=== PATIENT | male | born 1940 | race Asian ===

== ENCOUNTER 2024-02-24 16:04 | Emergency (ER) | payer BC, SELFPAY ==
[2024-02-24] VITALS (8 sets, daily range): BP systolic 140–172; BP diastolic 67–87; BMI 31.5
--- NOTE | 2024-02-24 16:37 | ED.GENMED ---
History of Present Illness
General
Chief Complaint: Headache
Source: patient, spouse and family (daughter at bedside)
Time Seen by Provider: 02/24/24 16:27
Nursing documentation reviewed up to this point in time: agreed with
History of Present Illness
History of Present Illness:
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 worse when he presses the areas. Was there when he woke up at 3 a.m. to go
to [facility]. Went to [facility], urinated and back to bed, felt unsteady. Went back to sleep, awakened at 7:30 a.m. and felt dizzy with the pain again 'just below my eyebrows' That pain remained constant 6/10 all day and remains that currently. He denies any
change in vision, denies photophobia. Has felt nausea off and on, no vomiting. Took Tylenol with no relief. Denies recent URI, sinus problems. Denies recent fall/head trauma
In 2012 in [place] had a 'small clot in his brain that was treated medically with Aspirin' daughter states. She states no hx stroke.
Daughter states pt has been c/o SOB with his daily twice-a day 1.5 mile walks. Pt denies chest pain.
Medications:
Wysolone prednisone 10 mg 0�1 0
Myestin pyridostigmine 60 mg BID
Omeprazole 40 mg
Tamsulosin 0.4 mg
Vitamin D3 500 mcg
Calcium 500 mg
Glimepiride 1 mg BID
Metformin 500 mg twice daily
Claritin
Past History
Past History
ED Past Medical History: NIDDM, Other (Ocular Myasthenia Gravis) and Other (BPH)
ED Past Surgical History: Orthopedic
Social History
Tobacco: Non-smoker
Alcohol: None
Personal:
Living: with family
Review of Systems
Review of Systems
Allergies reviewed?: Yes
All Other Systems: ROS reviewed and negative except as documented in HPI and ROS
Constitutional: Denies fever
Respiratory: Denies trouble breathing
Cardiac: Denies chest pain
ABD/GI: Denies abdominal pain, nausea or vomiting
: Denies dysuria or difficulty voiding
Musculoskeletal: Reports no symptoms; Denies edema
Skin: Reports no symptoms
Neurological: Reports headache (pressure pain behind both upper eyelids ); Denies dizzy, weakness or numbness
Phy Exam
Physical Exam
Physical Exam:
GENERAL: No acute distress. A&Ox3.
CONSTITUTIONAL: Afebrile.
EYES: PERRL, EOMs intact. Conjunctivae normal, eyelids are droopy chronically, left greater than right
Neck: Supple
ENMT: moist mucus membranes, Pharynx nl
RESPIRATORY: Regular respirations, nonlabored, lungs clear.
CARDIOVASCULAR: Regular rate and rhythm, no murmurs, no rubs.
GI: Soft, nontender, normal BS
MUSCULOSKELETAL: Moves with ease. Well perfused.
SKIN: Warm, dry, pink
PSYCH: Normal mood and affect. Well kept, interactive and appropriate
NEUROLOGIC: Awake, alert and oriented. Speech clear. Cranial nerves II through XII intact. [id number] intact. No focal neurological deficits
Course
Orders/Labs/Results
Orders:
Orders
02/24/24 16:13
EKG [Electrocardiogram (*1)] Urgent
Reason for Study: Chest Pain
EKG- Treatment ONCE
02/24/24 16:40
IV Insert/Care/Rem.- Treatment PRN
02/24/24 16:42
CT Head W/o Iv Contrast Urgent
Comment:
Reason For Exam: headache behind eyes
Ondansetron Injectable [Zofran] 4 mg IV NOW STA
02/24/24 16:43
0.9% Sodium Chloride 500 ml [Nss] 500 ml IV BOLUS
Butalb/Acetaminophen/Caffeine [Fioricet] 1 tab PO NOW STA
02/24/24 16:45
CR Chest - 2 Views Urgent
Comment:
Reason For Exam: intermittent SOB
02/24/24 16:53
Complete Blood Count/With Diff Urgent
Comprehensive Metabolic Panel Urgent
NT-proBNP Urgent
Troponin I Urgent
Abnormal Lab Results
02/24/24
16:53
RBC 4.05 L 10^6/uL
(4.70-6.10)
Hgb 11.3 L g/dL
(13.0-18.0)
Hct 33.6 L %
(39.0-52.0)
MPV 11.5 H fL
(7.4-10.4)
Monocytes % 10.3 H %
(1.7-9.3)
Creatinine 0.6 L mg/dL
(0.7-1.3)
Glucose 154 H mg/dl
(70-99)
AST 16 L U/L
(17-59)
Total Protein 5.8 L g/dl
(6.3-8.2)
Albumin 3.3 L g/dl
(3.5-5.0)
02/24/24 16:53
02/24/24 16:53
Vital Signs
Initial and Last Documented VS:
Initial Vital Signs
Temp Pulse Resp BP Pulse Ox
97.3 F 54 16 167/83 100
02/24/24 16:07 02/24/24 16:07 02/24/24 16:07 02/24/24 16:07 02/24/24 16:07
Last Documented Vital Signs
Temp Pulse Resp BP Pulse Ox
97.3 F 66 13 140/67 100
02/24/24 16:07 02/24/24 18:13 02/24/24 18:13 02/24/24 18:13 02/24/24 17:45
MDM/Problems Addressed
Differential Diagnosis Includes:
sinusitis, migraine, brain mass
MDM/Problems Addressed:
84 yo male with h/o Ocular Myasthenia Gravis, NIDDM, BPH, GERD presents with 'pressure pain' 6/10 upper eyelids below his eyebrows. worse when he presses the areas, both eyes there when he woke up at 3 a.m. to go to [facility]. Went to [facility], urinated and back
to bed, felt unsteady. Went back to sleep, awakened at 7:30 a.m. and felt dizzy with the pain behind his eyes. He denies any change in vision, denies photophobia. Has felt nausea off and on, no vomiting. Took Tylenol with no relief. Denies recent
URI, sinus problems. Denies recent fall/head trauma
In 2011 in [place] had a 'small clot in his brain that was treated medically with Aspirin' daughter states. She states no hx stroke.
Daughter states pt has been c/o SOB with his daily twice-a day 1.5 mile walks. Pt denies chest pain.
5:45 p.m.
CBC with no clinically significant abnormality
CMP: No clinically significant abnormality
Troponin within normal limits
BNP within normal limits
Chest x-ray radiology report read: IMPRESSION:
1. Mildly decreased bilateral lung volumes with mild subpleural airspace and interstitial disease in the lower lungs. Diagnostic possibilities are (1) a mild inflammatory interstitial pneumonitis or (2) mild subsegmental atelectasis/scarring.
2. No radiographic evidence for pneumonia, acute pulmonary edema, or pleural effusion.
3. Superior endplate fracture of L1 with near complete vertebral body collapse.
Head CT Radiology report read:
IMPRESSION:
1. Mild diffuse cerebral and cerebellar volume loss.
2. Mild periventricular white matter leukoaraiosis.
3. 1.9 cm sebaceous cyst in the scalp superior to the right frontal bone.
6:00 p.m.
In to re evaluate pt: After Fiorecet he states pain in upper lids is much improved now '07/22.'
No neuro deficits. Pt orthostatics neg
Ambulating up and down hallway with cane (his baseline) with steady gait
Rx for Fioricet sent to his pharmacy.
*Critical Care Note
Total Time (30-74mins, 75-104mins- exclusive of procedures): Not Applicable
ED Attending Note
-
Portions of this chart may have been created with voice recognition software.� Occasional wrong word or��sound alike� substitutions may have occurred due to the inherent limitations of voice recognition software.
Discharge Plan
Departure
Patient Disposition: Home (Routine Discharge)
Date of Disposition: 02/24/24
Time of Disposition: 18:21
Patient with high blood pressure during this ER visit?: No
Condition: Good
Discharge Problem:
Frontal headache
Instructions: Headache, Adult (DC)
Prescriptions:
New
xnmkcfufdx-bnvoluftbyjlb-[id number] [Fioricet] 50-300-40 mg capsule
1 cap PO Q8H PRN (Reason: Pain) Qty: 10 0RF
Referrals:
Cash Hou Jr., DO [Family Provider] - Follow up in 5-7 days
Activity Restrictions/Additional Instructions:
As we discussed, your head CT and chest x-ray showed nothing worrisome.
Your blood work also shows nothing concerning.
Your EKG was normal
For your headache, Tylenol 1000 mg every 8 hours as needed for mild to moderate pain and use the Fioricet an hour after the Tylenol you get no relief from the Tylenol.
See your doctor next week if your headache persists
Interventions
Interventions:
*Risk Screen - Suicide Last Done: 02/24/24 16:07
*General Assessment Last Done: 02/24/24 16:07
*Neglect/Abuse Screening Last Done: 02/24/24 16:07
*Nursing Disposition Last Done: 02/24/24 18:42
ED- Neurological Assessment Last Done: 02/24/24 17:05
Discharge Date and Time
Discharge Date/Time: 02/24/24 18:42
Print Language: INDONESIAN
[2024-02-24] MEDS: NSS 500 IV (16:54)
[2024-02-24] MEDS: ZOFRAN 4 MG IV (16:55)
[2024-02-24] MEDS: FIORICET 1 TAB PO (16:55)
[2024-02-24 17:13] LABS: % Basophils 0.8 % (0-2); % Eosinophils 1.1 % (0-6); % Immature Granulocytes 0.4 % (0-0.5); % Lymphocytes 30.7 % (20.5-51.1); % Monocytes 10.3 % (1.7-9.3); % Neutrophils 56.7 % (42.2-75.2); Absolute Eosinophils 0.1 10^3/uL (0-0.7); Absolute Lymphocytes 1.6 10^3/uL (1.2-3.4); Absolute Monocytes 0.5 10^3/uL (0.1-0.6); Hematocrit 33.6 % (39.0-52.0); Hemoglobin 11.3 g/dL (13.0-18.0); Mean Corp Hgb Conc. 33.6 g/dL (33.0-37.0); Mean Corpuscular Hgb 27.9 pg (27.0-31.0); Mean Platelet Volume 11.5 fL (7.4-10.4); Nucleated Red Blood Cells % 0 % (-); Platelet Count 131 10^3/uL (130-400); Red Blood Cell Count 4.05 10^6/uL (4.70-6.10); Red Cell Dist. Width 14.3 % (11.5-14.5); White Blood Cell Count 5.2 10^3/uL (4.8-10.8)
[2024-02-24 17:25] LABS: ALT (SGPT) 12 U/L (0-50); AST (SGOT) 16 U/L (17-59); Albumin 3.3 g/dl (3.5-5.0); Alkaline Phosphatase 53 U/L (38-126); Blood Urea Nitrogen 9 mg/dl (9-20); Calcium 8.8 mg/dl (8.4-10.2); Carbon Dioxide 25 mmol/L (22-30); Chloride 103 mmol/L (98-107); Estimated Creatinine Clearance 100 ml/min; Glucose 154 mg/dl (70-99); Potassium 3.8 mmol/L (3.5-5.1); Sodium 136 mmol/L (135-145); Total Bilirubin 0.6 mg/dl (0.2-1.3); Total Protein 5.8 g/dl (6.3-8.2); eGFR > 60.00
[2024-02-24 17:30] LABS: NT-proBNP 344 pg/ml; Troponin I < 0.012 ng/ml
== END 2024-02-24 18:42 | disposition home or self-care (01) ==
LOC: EMR 16:04
PROVIDERS: Registered Nurse; EMERGENCY PHYSICIAN Emergency Medicine; FAMILY PHYSICIAN Family Medicine
DX: R51.9 Headache, unspecified (principal); R06.02 Shortness of breath; R26.81 Unsteadiness on feet; R11.0 Nausea; R42 Dizziness and giddiness; L72.3 Sebaceous cyst; M48.56XA Collapsed vertebra, not elsewhere classified, lumbar region, initial encounter for fracture; G70.00 Myasthenia gravis without (acute) exacerbation; E11.9 Type 2 diabetes mellitus without complications; K21.9 Gastro-esophageal reflux disease without esophagitis; N40.0 Benign prostatic hyperplasia without lower urinary tract symptoms
CPT/HCPCS: 99285; 96374; 96361; 70450; 71046; 80053; 83880; 84484; 85025; 93005